=== PATIENT | female | born 2000 | race Hispanic/Latino ===

== ENCOUNTER 2024-10-06 15:13 | Emergency (ER) | payer OTHER ==
[~2024-10-06] VITALS: Ht 167.6 cm; Wt 61.8 kg
[2024-10-06] MEDS ORDERED: BIRTH CONTROL (16:21)
[2024-10-06] MEDS ORDERED: TRAZODONE HCL50 MG PO (16:21)
[2024-10-06] MEDS: SODIUM CHLORIDE 0.9% 1000ML 1,000 ML IV ONE ×2 (17:37→19:16)
[2024-10-06] MEDS ORDERED: KETOROLAC TROMETHAMINE 30 MG/ML VIAL ONE (18:07)
[2024-10-06] MEDS ORDERED: ONDANSETRON HCL INJ 2MG/ML 2ML 2 MG/ML VIAL ONE (18:07)
[2024-10-06] MEDS: KETOROLAC TROMETHAMINE 30 MG/ML VIAL IV STA (18:18)
[2024-10-06] MEDS: ONDANSETRON HCL INJ 2MG/ML 2ML 2 MG/ML VIAL IV STA (18:18)
[2024-10-06] MEDS ORDERED: IOPAMIDOL 370 MG/ML 100 ML INFUS..BTL INJ ONE (20:30)
[2024-10-06 22:48] VITALS: PULSE 104; RESP 20; TEMP 98.4
[2024-10-06 22:50] VITALS: BP 132/69; PULSE 104; RESP 20; TEMP 98.4; O2SAT 100
== END 2024-10-06 22:54 | disposition home or self-care (01) ==
LOC: FSED 15:58
DX: R50.9 Fever, unspecified (principal); B34.9 Viral infection, unspecified; R05.9 Cough, unspecified; R00.0 Tachycardia, unspecified; R11.0 Nausea
CPT/HCPCS: 71260; 80053; 85025; 85379; 93005; 96374; 96375; 99284; J1885; J2405; J7030; Q9967